=== PATIENT | female | born 1980 | race Caucasian/White ===

== ENCOUNTER → 2023-12-10 | Outpatient (CLI) | payer OTHER ==
[~2023-12-10] MED LIST: PROHANCE 279.3MG/ML 5ML VIAL As Ordered ONE
== END ==
LOC: M RAD 12:26
PROVIDERS: ATTEND Student in an Organized Health Care Education/Training Program
DX: N28.1 Cyst of kidney, acquired (principal)
CPT/HCPCS: 74183; A9576

== ENCOUNTER → 2023-12-27 | Outpatient (CLI) | payer OTHER | LOC: M RAD 15:13 | PROVIDERS: ATTEND Student in an Organized Health Care Education/Training Program | DX: R93.7 Abnormal findings on diagnostic imaging of other parts of musculoskeletal system (principal) ==

== ENCOUNTER → 2024-03-07 | Outpatient (CLI) | payer OTHER ==
[~2024-03-07] MED LIST changes: +ISOVUE-300 61% 100ML VIAL As Ordered ONE; +LIDOCAINE 1% MDV 20ML VIAL As Ordered ONE
== END ==
LOC: M RAD 06:40
PROVIDERS: ATTEND Physician Assistant
DX: M25.552 Pain in left hip (principal)
CPT/HCPCS: 27093; 73723; 77002; A9576; Q9967

== ENCOUNTER 2024-05-02 11:42 | Day surgery (SDC) | payer OTHER ==
[~2024-05-02] VITALS: Ht 162.6 cm; Wt 83.8 kg
[~2024-05-02 11:42] MED LIST changes: +ACETAMINOPHEN 500 MG TAB PO ONE; +CYMB60CA4 PO; +HYDR50TA70 PO; -ISOVUE-300 61% 100ML VIAL As Ordered ONE; -LIDOCAINE 1% MDV 20ML VIAL As Ordered ONE; +NAPR-849 PO; +PANT40TA29 PO; +PRAZ5CAP PO; -PROHANCE 279.3MG/ML 5ML VIAL As Ordered ONE; +REXU1TAB3 PO; +ROZE8TAB16 PO; +SCOPOLAMINE 1MG TRANSDERMAL PATCH TOP ONE; +TRAN650T PO; +TRAZ-189 PO; +ZONI25CA13 PO
[2024-05-02] MEDS ORDERED: LR 1,000 ML IV SCH (11:45)
[2024-05-02 12:19] LABS: HEMATOCRIT 39.7 % (36.0-47.0); HEMOGLOBIN 13.4 g/dl (12.0-15.5); MEAN CORPUSCULAR HEMOGLOBIN 29.9 pg (27.0-33.0); MEAN CORPUSCULAR HGB CONC 33.8 g/dl (32.0-36.5); MEAN CORPUSCULAR VOLUME 88.6 fl (80.0-96.0); PLATELET COUNT, AUTOMATED 275 10^3/uL (150-450); RED BLOOD COUNT 4.48 10^6/uL (4.00-5.40)
[2024-05-02] MEDS ORDERED: fentaNYL 100 MCG/2 ML INJECTION As Ordered ONE (13:48)
[2024-05-02] MEDS ORDERED: LIDOCAINE 2% 100MG/5ML SDV (FOR ANES.) As Ordered ONE (13:49)
[2024-05-02] MEDS ORDERED: KETOROLAC 60MG 2ML VIAL As Ordered ONE (13:49)
[2024-05-02] MEDS ORDERED: MIDAZOLAM INJ 2MG/2ML VIAL As Ordered ONE (13:49)
[2024-05-02] MEDS ORDERED: propofoL 200 MG/20 ML VIAL As Ordered ONE (13:49)
[2024-05-02] MEDS ORDERED: ONDANSETRON 4MG 2ML VIAL As Ordered ONE (13:49)
[2024-05-02] MEDS: SILVER NITRATE APPLICATOR (1 = QTY 10) As Ordered ONE (15:06)
[2024-05-02] MEDS: LIDOCAINE 1% MDV 20ML VIAL As Ordered ONE (15:07)
[2024-05-02] MEDS ORDERED: MORPHINE 2 MG/ML 1ML VIAL IV PRN (15:25)
[2024-05-02] MEDS ORDERED: fentaNYL 100 MCG/2 ML INJECTION IV PRN (15:25)
[2024-05-02] MEDS: oxyCODONE 5MG TAB PO PRN (16:02)
[2024-05-02] MEDS: ONDANSETRON 4MG 2ML VIAL IV PRN (16:03)
[2024-05-02 17:00] VITALS: BP 130/86; TEMP 97.9; O2SAT 98
[2024-05-05 13:26] LABS: HPV APTIMA Not Detected (Not Detected)
== END 2024-05-02 17:38 | disposition home or self-care (01) ==
LOC: M SDC 11:42
PROVIDERS: ATTEND Student in an Organized Health Care Education/Training Program
DX: N85.00 Endometrial hyperplasia, unspecified (principal); N93.9 Abnormal uterine and vaginal bleeding, unspecified; Z12.4 Encounter for screening for malignant neoplasm of cervix; Z79.899 Other long term (current) drug therapy
CPT/HCPCS: 36415; 58563; 81025; 85027; 86850; 86900; 86901; 87624; 88305; G0123; J1100; J1885; J2250; J2405; J3010

== ENCOUNTER → 2024-05-09 | Outpatient (CLI) | payer OTHER ==
[~2024-05-09] MED LIST changes: -ACETAMINOPHEN 500 MG TAB PO ONE; +PROHANCE 279.3MG/ML 5ML VIAL ONE; -SCOPOLAMINE 1MG TRANSDERMAL PATCH TOP ONE
== END ==
LOC: M PLAIMG 12:44
PROVIDERS: ATTEND Obstetrics & Gynecology
DX: D35.2 Benign neoplasm of pituitary gland (principal); E23.6 Other disorders of pituitary gland
CPT/HCPCS: 70553; A9576